=== PATIENT | male | born 1965 | race Caucasian/White ===

== ENCOUNTER 2020-10-20 20:13 | Inpatient (IN) | payer OTHER ==
[~2020-10-20] VITALS: Ht 182.9 cm; Wt 105.2 kg
[2020-10-20] MEDS ORDERED: LISINOPRIL20 MG PO (20:49)
[2020-10-20] MEDS ORDERED: NORVASC5 MG PO (20:50)
[2020-10-20] MEDS ORDERED: HYDROCHLOROTHIA25 MG PO (20:50)
--- OUTSIDE RECORDS SUMMARY | 2020-10-20 22:50 | XMS ---
PreManage Notification: DONNY HILLIARD Security Oncology Physician Assistant Events No recent Security Events currently on file CRITERIA MET - [facility] - 2 Visits in 30 Days CARE PROVIDERS There are no care providers on record at this time. Stephanie has no Care Guidelines for this patient. [place] VISIT COUNT (12 MO.) [address] TOTAL 3 NOTE: Visits indicate total known visits. ED/UCC VISIT TRACKING (12 MO.) [facility] COMPLAINT: - DIARRHEA, ABD PAIN 10/19/2020 15:32 [facility] OR TYPE: Emergency DIAGNOSES: - Unspecified intestinal obstruction, unspecified as to partial versus complete obstruction - BOWEL PROBLEM 10/14/2020 15:57 [facility] TYPE: Emergency COMPLAINT: - DIARRHEA VOMITING DIAGNOSES: - DIARRHEA VOMITING INPATIENT VISIT TRACKING (12 MO.) 10/19/2020 15:32 [facility] [place] TYPE: Medical Surgical DIAGNOSES: - Unspecified intestinal obstruction, unspecified as to partial versus complete obstruction 10/14/2020 15:57 [facility] OR TYPE: Medical Surgical DIAGNOSES: - Unspecified intestinal obstruction, unspecified as to partial versus complete obstruction [email or web address]
--- NOTE | 2020-10-21 01:06 | NUR ---
PT TO ROOM 124 FROM ED AT 2350 VIA STRETCHER. ALERT AND ORIENTED. ABLE TO TRANSFER SELF TO BED. ACCOMPANIED BY . ORDERS RECEIVED. VS AND WEIGHT OBTAINED. PT DENIES PAIN OR NAUSEA AT THIS TIME. IV BOLUS INFUSING ORDERED. 16F NGT PLACED IN RIGHT NARE WNL. PT NERI WELL. IMMEDIATE RETURN OF STOMACH CONTENTS NOTED. NGT TO LIWS. ABD FIRM AND DISTENDED. BOWEL TONES HYPOACTIVE. UMBILICAL HERNIA NOTED. PT DENIES QUESTIONS OR CONCERNS. LINENS PROVIDED FOR TO STAY IN ROOM. WARM BLANKET FOR PT. PT ORIENTED TO ROOM AND NURSE CALL LIGHT.
--- NOTE | 2020-10-21 02:01 | NUR ---
IV BOLUS COMPLETE. LR @ 125 ML/HR NOW INFUSING. PT RESTING IN BED WITH EYES CLOSED. SpO2 96% ON RA. HR 60'S. NGT TO LIWS WITH BROWN DRAINAGE.
--- NOTE | 2020-10-21 06:14 | NUR ---
CALL LIGHT ANSWERED. PT UP TO BR WITH MINIMAL SBA TO VOID AND HAVE LIQUID BM. GAIT STEADY. BACK TO BED, NERI WELL. UA SENT TO LAB. NGT WTIH 650 ML BROWN DRAINAGE. PT DENIES PAIN OR NAUSEA. ABD FIRM AND DISTENDED. BOWEL TONES HYPOACTIVE. IVF INFUSING ORDERED. IN ROOM. CALL LIGHT IN REACH.
--- NOTE | 2020-10-21 07:15 | NUR ---
Report received from Katlyn SORIANO. Pt sitting up in bed, NG to LIWS, states no needs at this time. Will continue plan of care.
--- NOTE | 2020-10-21 08:59 | NUR ---
PT CALL LIGHT ON. PT RETURNED FROM SCAN. PT REQUESTS NG TUBE AND IV FLUIDS BE RESTARTED. THIS RN TO ROOM. NG TUBE HOOKED UP TO LOW INTERMITTANT SUCTION. IV FLUIDS RESTARTED (SEE MAR). PTS RN UPDATED. NO ADDITIONAL REQUESTS OR COMPLAINTS. CALL LIGHT WITHIN REACH. PTS RN IN ROOM.
--- NOTE | 2020-10-21 09:18 | NUR ---
Pt requests lozenge for sore throat r/t NGT. Administered. Pt has no needs.
--- NOTE | 2020-10-21 09:34 | NUR ---
Scheduled medications administered and assessment complete. VS and I/O's complete. Pt has moderate distention in ABD, hyperactive bowel tones but denies pain, states only discomfort r/t NGT. NGT to TARYN, WNL. IVF infusing WNL. No requests at this time. Call light in reach
--- NOTE | 2020-10-21 10:22 | NUR ---
MED REC COMPLETE
--- NOTE | 2020-10-21 11:20 | NUR ---
IN TO PATIENT ROOM TO ATTEMPT CASE MANAGEMENT ASESSMENT. PATIENT SLEEPING, DOES NOT WAKE TO VOICE OR TOUCH. SHIV SORIANO NOTIFIED, SHE STATES PATIENT HAS BEEN SLEEPING MOST OF THE AM. WILL RETURN FOR ASSESSMENT WITH PATIENT IS AWAKE.
--- NOTE | 2020-10-21 12:41 | NUR ---
Scheduled ABX infusing. Pt resting in bed with eyes closed, even and unlabored respirations. Denies needs, call light in reach.
--- NOTE | 2020-10-21 13:36 | NUR ---
Pham espino complete, pt updated on POC and is agreeable, has no needs at this time.
--- NOTE | 2020-10-21 15:03 | NUR ---
CONNECTED WITH PT JUST BEFORE SURGERY. GAVE ENCOURAGEMENT, PT REQUESTED WE PRAY TOGETHER. PT THANKFUL FOR VISIT, WILL CONTINUE TO FOLLOW
--- NOTE | 2020-10-21 16:24 | NUR ---
Rounded on patient, juice provided per request. Pt updated on POC, cooperative. IVF infusing wnl. Clear tray ordered.
--- NOTE | 2020-10-21 17:40 | NUR ---
NGT cannister changed. Pt has clear liquid tray, tolerating well at this time with liquids for comfort. States no needs at this time. Call light in reach.
--- NOTE | 2020-10-21 17:46 | NUR ---
Scheduled surgery tomorrow. Pt has NGT to LIWS with good output. IVF and ABX infusing. Clear liquids for comfort until midnight. ABD distended, pt states no pain/nausea. Cepacol lozenges for throat irritation. No other PRN medications required this shift. A+O, VSS, VQS. Calls appropriately.
--- NOTE | 2020-10-21 19:46 | NUR ---
REPORT RECEIVED FROM DAY SHIFT RN. PT LYING IN BED ALERT AND ORIENTED. NGT CLAMPED FOR PRN MAALOX ADMINISTRATION FOR C/O HEARTBURN. PT DENIES PAIN OR NAUSEA. NEW BAG IVF INFUSING. DENIES FURTHER NEEDS. WHITE BOARD UPDATED. CALL LIGHT IN REACH.
--- NOTE | 2020-10-21 20:46 | NUR ---
EVENING ASSESSMENT COMPLETE. SCHEDULED MEDS ADMINISTERED PER EMAR. PT DENIES PAIN OR NAUSEA. DOES REPORT THROAT IRRITATION FROM NGT. PRN ADMINISTERED FOR C/O SORE THROAT. NGT BACK TO LIWS WITH CLEAR DRAINAGE. ABD FIRM AND DISTENDED. BOWEL TONES HYPOACTIVE. IVF INFUSING. PT WITH CLEAR LIQUIDS AT BEDSIDE. SCD'S IN PLACE. DENIES QUESTIONS OR CONCERNS. CALL LIGHT IN REACH.
--- NOTE | 2020-10-21 21:09 | HP ---
[facility] [address], [place] [address] Signed ADMISSION DATE: 10/20/2020 TIME: 10:45 p.m. PROBLEM: Small-bowel obstruction (persistent). HISTORY OF PRESENT ILLNESS: This 54-year-old white man was hospitalized in [place], [place] on October 14, having presented to the hospital at [facility] in [place] with abdominal distention, nausea, vomiting, and so forth. A CT scan showed findings consistent with bowel obstruction. Nasogastric tube was maintained for some amount of time. He was discharged on the 18 of October, but had prompt return of nausea and vomiting on the and re-presented to [facility] where CT scan was once again performed. The findings on the CT scan showed abdominal bowel loop distention as well as a nonobstructing incisional hernia at the umbilicus with herniated properitoneal fat. There appeared to be a left-sided segment of small bowel that had a relatively long stricture in appearance. There was no sign of ascites. The patient has had vomiting at least once. He presented to [facility] as he said "nothing was being done" while hospitalized in [place]. He has had some diarrhea. He has had no hematemesis or blood per rectum. PAST SURGICAL HISTORY: Does include laparoscopic cholecystectomy in the past as well as possible hernia repair. SOCIAL HISTORY: He is . He is accompanied by his . 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 REVIEW OF SYSTEMS: He denies any shortness of breath or chest pain. He has had no dysphagia or dysuria. He denies any hematemesis or blood per rectum. PHYSICAL EXAMINATION: GENERAL: Pleasant white man who does not look systemically toxic. His white count is elevated at 15.4, creatinine is 1.35, potassium of 3.2, blood sugar 136. HEENT: Trachea is midline. Mucous membranes are rather dry. CHEST: Shows normal respiratory excursion. He has no tachypnea. Electronically Signed By: JAKE PEREZ MD 10/21/20 2109 PATIENT NAME: DONNY HILLIARD HISTORY AND PHYSICAL DATE OF : 63 REPORT #: [id number] PHYSICIAN: JAKE PEREZ MD PCP: NO PRIMARY CARE PHYSICIAN REPORT IS CONFIDENTIAL AND NOT TO BE RELEASED WITHOUT AUTHORIZATION [facility] [address], [place] [address] Signed ABDOMEN: Markedly distended, highly consistent clinically with bowel obstruction. He has mild tenderness in the mid to lower abdomen on the right side. EXTREMITIES: Show no clubbing, cyanosis, or edema. CT scan from [place] was reviewed in detail and findings were noted as previously described. The official report described bibasilar atelectasis. Radiographic findings of prior cholecystectomy. No evidence of lymphadenopathy of the abdomen and persistent demonstration of mid to distal small bowel distention greater than 4 cm related to regions of nondistention and mild mural thickening of the small bowel with multiple segments of dilated small bowel distal to the dominant region, possible inflammatory change. ASSESSMENT: He has a small-bowel obstruction which is of uncertain etiology, but not related to the hernia that is noted. This may be related to an inflammatory stricture or less likely an intussusception type abnormality or neoplasm of the small bowel. The possibility of inflammatory stricture related to Crohn disease is also considered of course. He has had a fair amount of time since the onset of his obstructive symptoms on October 14 and at this point, would recommend fluid resuscitation, nasogastric tube placement and likely operative intervention tomorrow. This might include a laparoscopic approach to identify the offending inflammatory or neoplastic stricture and extra-abdominal resection. More likely, however, he will require a laparotomy hopefully with limited abdominal incision. Discussed all this with the patient and his , they understand and agree. MD JENNIFER White/MODL /[id number] cc: MD Dr. Adrian Varghese Copies: LAURA BLANCO MD Electronically Signed By: JAKE PEREZ MD 10/21/202108 PATIENT NAME: DONNY HILLIARD HISTORY AND PHYSICAL DATE OF : 63 REPORT #: [id number] PHYSICIAN: JAKE PEREZ MD PCP: NO PRIMARY CARE PHYSICIAN REPORT IS CONFIDENTIAL AND NOT TO BE RELEASED WITHOUT AUTHORIZATION [facility] [address] [facility] [place] [address] Signed ~ Electronically Signed By: JAKE PEREZ MD 10/21/20 2109 PATIENT NAME: DONNY HILLIARD HISTORY AND PHYSICAL DATE OF : 63 REPORT #: [id number] PHYSICIAN: JAKE PEREZ MD PCP: NO PRIMARY CARE PHYSICIAN REPORT IS CONFIDENTIAL AND NOT TO BE RELEASED WITHOUT AUTHORIZATION
--- NOTE | 2020-10-22 00:01 | NUR ---
IV ABX INFUSING PER ORDER. NGT CANNISTER REPLACED. PT AWARE OF NPO STATUS. DENIES PAIN OR NAUSEA. NO FURTHER NEEDS.
--- NOTE | 2020-10-22 04:03 | NUR ---
NEW BAG IVF INFUSING. NGT TO LIWS WITH DARK BROWN DRAINAGE. PT DENIES PAIN OR NAUSEA. ASSESSMENT COMPLETE. ABD FIRM AND DISTENDED. BOWEL TONES ACTIVE. PT DENIES NEEDS. IN ROOM. CALL LIGHT IN REACH.
--- NOTE | 2020-10-22 06:33 | NUR ---
IV ABX INFUSING PER ORDER. NGT TO LIWS WITH DARK BROWN DRAINAGE. PRN LOZENGE ADMINISTERED FOR THROAT DISCOMFORT. PT DENIES ABD PAIN OR NAUSEA. SCD'S IN PLACE. IN ROOM. CALL LIGHT IN REACH.
--- NOTE | 2020-10-22 07:15 | NUR ---
Report received from Katlyn SORIANO. Pt alert and oriented, resting in bed and states no needs. NGT to LIWS. NPO.
--- NOTE | 2020-10-22 07:55 | NUR ---
Scheduled medications administered, NGT clamped at this time for med pass. Assessment complete. Pt denies pain, c/o indigestion and throat irritation, PRN maalox and cepacol provided. ABD distended, bowel tones active. IVF infusing WNL. VSS, I/O's complete. Preop wipedown complete. Call light in reach.
--- NOTE | 2020-10-22 08:45 | NUR ---
TO PATIENT ROOM TO COMPLETE ASSESSMENT. PATIENT IN OR. WILL FOLLOW UP WITH PATIENT WHEN HE RETURNS TO THE FLOOR.
--- NOTE | 2020-10-22 09:21 | NUR ---
Pt ready for procedure. Updated on plan of care, agreeable. at bedside, attentive to pt. States no needs at this time, DRAFTER CONSTRUCTION in room.
--- NOTE | 2020-10-22 10:30 | NUR ---
I was unable to meet with Manuel this a.m. as he was in surgery during my patient rounding. However, there was an adult female in the room waiting for him to return from surgery. I introduced myself, and left a business card. I also asked if there were questions or concerns regarding Siri care. The response was "We are very happy wit the care he has received." No questions or concerns were expressed at this time.
--- NOTE | 2020-10-22 12:55 | NUR ---
10/22/20 1255 Noa Rodriguez 1236-PATIENT ARRIVED TO PACU ON 6L MASK RR EVEN. PATIENT MOVING ALL EXTREMITIES, KNEES BENT IN BED. PATIENT AWAKE REPORTING PAIN 10/10 WILL MEDICATE PER EMAR. SR. IVF INFUSING. MORENO CATHETER DRAINING. PATIENT REPORTS "NEEDS TO PEE" EDUCATED ABOUT MORENO DRAINING. 1245-NEW ORDER RECEIVED FROM JAKE DE LEON FOR 1 GRAM IV TYLENOL. PATIENT REPORTING PAIN 8/10 AND MOVING LEGS IN BED. ENCOURAGED TO REST. 1254-PATIENT SLEEPING 6L MASK RR EVEN.
--- NOTE | 2020-10-22 13:15 | NUR ---
Pt returns from procedure, drowsy but responds to questioning. VSS. On 2L O2 NC, cpox in place, SPO2 99%. Pt reports pain 5/10 in abdomen. Dressing to midline incision with laurent, covered with surgical dressing, light shadowing noted. G tube draining to bag. Narvaez in place, draining WNL. in room, attentive to patient.
--- NOTE | 2020-10-22 14:30 | NUR ---
Post op hourly vitals completed
--- NOTE | 2020-10-22 14:37 | NUR ---
BO CHANEY INFORMED ME THAT PT HAD JUST RETURNED FORM PACU AND REQUESTED I LET PT REST MORE. WILL FOLLOW NEEDED
--- NOTE | 2020-10-22 14:41 | NUR ---
PT ASKED IF MCBUTTERFLY WAS IN THE ROOM. STATED NO HIS NURSE WAS SHIV. HE SAID "NO MCBUTTERFLY". OH, CHRIS? PT STATED YES. SAID NO, HE WILL BE BACK TO CHECK ON HIM TONIGHT OR TOMORROW MORNING.
--- NOTE | 2020-10-22 15:08 | NUR ---
COCOA BEAN ROASTER pump initiated, verified by second RN. Pt educated regarding COCOA BEAN ROASTER use, drowsy, continue to reinforce this. Pt's educated that only patient can use COCOA BEAN ROASTER button, she verbalizes understanding and agreement. Pt stating 5/10 pain at this time. Will continue to monitor.
--- NOTE | 2020-10-22 15:30 | NUR ---
Post op hourly vitals complete
--- NOTE | 2020-10-22 16:30 | NUR ---
post op hourly vitals complete, pt resting in bed with eyes closed, respirations even and unlabored, pt has not utilized TALENT DEVELOPMENT ANALYST pump at this time. 2L O2 NC in place, CPOX in place. IVF infusing WNL.
--- NOTE | 2020-10-22 17:45 | NUR ---
ABX and IVF infusing. Pt resting in bed with eyes closed, awakens to voice, re-educated regarding PROGRAM ENGAGEMENT DIRECTOR pump. No needs at this time, call light in reach.
--- NOTE | 2020-10-22 19:30 | NUR ---
REPORT RECEIVED FROM DAY SHIFT RN. PATIENT RESTING QUIETLY WITH NO CARE NEEDS AT THIS TIME. CALL LIGHT IN REACH.
--- NOTE | 2020-10-22 22:01 | NUR ---
TALKED WITH AND PATIENT ADVANCED TO CLEAR LIQUID DIET. NO OTHER ORDERS TAKEN AT THIS TIME.
--- NOTE | 2020-10-22 22:37 | NUR ---
PATIENT PAIN WELL CONTROLLED WITH CARDIOPULMONARY TECHNOLOGIST CHIEF, NO NAUSEA, VS STABLE, ABD A LITTLE DISTENDED AND BOWEL TONES HYPOACTIVE. CALL LIGHT IN REACH AND PATIENT TAKING IN GOOD PO FLUIDS SINCE PLACED ON CLEAR LIQUIDS.
--- NOTE | 2020-10-23 | NUR ---
PATIENT RESTING QUIETLY STILL ON 2L/NC, EYES CLOSED, RESPIRATIONS REGULAR AND EVEN, CALL LIGHT IN REACH.
--- NOTE | 2020-10-23 02:15 | NUR ---
PATIENT CONTINUES TO REST QUIETLY, RESPIRATIONS HAVE BEEN REGULAR AND EVEN, PATIENT PAIN WELL CONTROLLED WITH INVESTOR RELATIONS MANAGER. PATIENT'S ASSESSMENT REMAINS UNCHANGED. CALL LIGHT IN REACH.
--- NOTE | 2020-10-23 03:00 | NUR ---
PATIENT RESTING QUIETLY, RESPIRATIONS REGULAR AND EVEN, EYES CLOSED, CALL LIGHT IN REACH.
--- NOTE | 2020-10-23 05:35 | NUR ---
PATIENT HAS SLEPT WELL THROUGH THE SHIFT PER PATIENT'S REPORT AND PAIN HAS BEEN WELL CONTROLLED WITH CORPORATE TAX MANAGER. PATIENT HAS ONLY USED 6MG THROUGH THE NIGHT. BOWEL TONES ARE HYPOACTIVE AND THERE HAS BEEN GOOD BILE DRAINAGE FROM THE G-TUBE SITE. MIDLINE DRESSING REMAINS INTACT WITH DRIED SEROSANGUINOUS DRAINAGE. PATIENT TAKING IN PO FLUIDS WELL. CALL LIGHT IS IN REACH.
--- NOTE | 2020-10-23 08:52 | NUR ---
patient resting in the bed. PT stood up for linen change. breakfast set up for him. warm washcloth offered and given. call light within reach. no further needs at this time.
--- NOTE | 2020-10-23 09:30 | NUR ---
IN TO GIVE PT MORNING MEDICATIONS. G-TUBE EMPTIED OF 210 MLS GREENISH/BILE-LIKE FLUID. BOWEL TONES HYPOACTIVE, PT DENIES NAUSEA OR BEING ABLE TO YET PASS GAS. PT HAS BEEN UP OUT OF BED THIS AM. MORENO REMAINS IN PLACE, EMPTIED OF 150 MLS CONCENTRATED URINE. PT HAS BEEN TOLERATING CLEAR LIQUID DIET MODERATELY WELL. IVF REMAIN @ 125 MLS/HR. PT HAS BEEN CALLING APPROPRIATELY. NO LONGER REQUIRING O2, SATING 95% ON ROOM AIR. GIVEN IV TORADOL FOR BREAKTHROUGH PAIN, PT IS ALSO ON CARDIAC CATH RN PUMP.
--- NOTE | 2020-10-23 10:16 | NUR ---
Patient is in bed watching TV, vitals charted, franco bag emptied and Is and Os charted. No other immediate needs or concerns. Call light within reach.
--- NOTE | 2020-10-23 11:35 | NUR ---
PT UP TO AMBULATE 2 LAPS AROUND NURSES STATION WITH DAMIEN FRANZ. TOLERATED WELL AND REPORTS PAIN IS WELL MANAGED AT THIS TIME. BACK TO BED. REFUSING TO SIT UP IN CHAIR THIS AM, BUT IS WALKING FREQUENTLY.
--- NOTE | 2020-10-23 13:46 | NUR ---
Patient is lying down resting. Room is organized, franco bag has been emptied and cleaned accordingly. Patient's call light is in reach along with personal belongings. Is and Os are charted.
--- NOTE | 2020-10-23 14:00 | NUR ---
MORENO URINE OUTPUT 100 MLS FOR THE LAST [address] TO REACH [address] PEREZ TO NOTIFY. MESSAGE LEFT TO RETURN CALL.
--- NOTE | 2020-10-23 14:26 | NUR ---
PT RESTING IN BED-ALERT AND ORIENTED. NG TUBE GONE, PT IS VERY PLEASED. HAS QUESTIONS REGARDING DRAIN AND MORENO. REFERREED TO BO RODRIGUEZ, SHE WAS ABLE TO ANSWER PTS' QUESTIONS. GAVE ENCOURAGEMENT, WILL FOLLOW
--- NOTE | 2020-10-23 14:30 | NUR ---
OIL WELL CABLE TOOL DRILLER PUMP ALARMING EMPTY. REPLACED CARTRIDGE W/ NICHOLAS SORIANO PRESENT FOR VERIFICATION AND COSIGNER. PUMP CLEARED OF 25.8 MG UPON REPLACEMENT. PT STATES PAIN IS WELL MANAGED AT THIS TIME. DENIES FURTHER NEEDS.
--- NOTE | 2020-10-23 14:52 | NUR ---
PT AMBULATED 4 LARGE LAPS AROUND NURSES STATIONS WITH OSEI QUEZADA.
--- NOTE | 2020-10-23 15:23 | NUR ---
IN ROOM TO VISIT. ASSESSMENT COMPLETED. BOWEL TONES HYPOACTIVE/RARE THROUGHOUT. PT CONTINUES TO APPEARS MODERATELY DISTENDED AND DENIES PASSING GAS. OLD DRAINAGE TO MIDLINE INCISION, INTACT. PT HAS BEEN VERY COMPLIANT WITH AMBULATING FREQUENTLY. DENIES ANY NAUSEA W/ CLEAR LIQUID DIET. PAIN CONTINUES TO BE WELL MANAGED W/ HOME CARE ASSOCIATE PUMP. G-TUBE DRAINAGE ORANGE/RED PT JUST ATE RED & ORANGE JELLO FOR LUNCH. DENIES FURTHER NEEDS.
--- NOTE | 2020-10-23 15:27 | PATH ---
[facility] [address] [place], [place] [address] Signed SPECIMEN(S): A HERNIA SAC SPECIMEN SOURCE: A. HERNIA SAC CLINICAL HISTORY: Umbilical hernia; small bowel obstruction. FINAL PATHOLOGIC DIAGNOSIS: Hernia sac, excision: - Mesothelial-lined fibromembranous tissue with chronic inflammation and fibrosis, consistent with hernia sac. - Fibroadipose tissue with no histopathologic abnormality. NAL:cml:C2NR MICROSCOPIC EXAMINATION: Histologic sections of all submitted blocks are examined by light microscopy. These findings, together with the gross examination, support the pathologic diagnosis. GROSS DESCRIPTION: The specimen, labeled "DC, hernia sac," is received in formalin and consists of one piece of irregular shaped fibromembranous tissue that measures 4.5 x 3.2 x 1.1 cm. Specimen is pink-beatty, focally congested. Sectioning through the specimen is grossly unremarkable. Helper Marble Finisher sections are submitted in cassette (A1). JS (under the direct supervision of a pathologist) The Gross Description was prepared using a voice recognition system. The report was reviewed for accuracy; however, sound-alike word errors, addition and/or deletions may occur. If there is any question about this report, please contact Client Services. PERFORMING LABORATORY: The technical component was performed by [employer], [address] [place] [id number] (Emergency Vehicle Driver: Parris Manrique MD; CLIA# [id number]). [facility], [address] [address] (CLIA# [id number]). Diagnostician: Shana Lewis MD Pathologist PATIENT NAME: DONNY HILLIARD PATHOLOGY DATE OF : 63 REPORT #: [id number] PHYSICIAN: [facility] PCP: NO PRIMARY CARE PHYSICIAN REPORT IS CONFIDENTIAL AND NOT TO BE RELEASED WITHOUT AUTHORIZATION [address] [place] [address] Signed Electronically Signed 10/23/2020 Copies: ~ PATIENT NAME: DONNY HILLIARD PATHOLOGY DATE OF : 63 REPORT #: [id number] PHYSICIAN: [facility] PCP: NO PRIMARY CARE PHYSICIAN REPORT IS CONFIDENTIAL AND NOT TO BE RELEASED WITHOUT AUTHORIZATION
--- NOTE | 2020-10-23 15:42 | NUR ---
LEFT MESSAGE REGARDING LOW UO.
--- NOTE | 2020-10-23 15:51 | NUR ---
Patient on clear liquid diet. Liquid intake measured at 0930 and 1320.
--- NOTE | 2020-10-23 18:30 | EKG ---
[facility] [address] [facility] [place] [address] Signed Sinus rhythm with occasional premature ventricular complexes Otherwise normal ECG No previous ECGs available Confirmed by ASIM ALCANTARA MD ([id number]) on 10/23/2020 6:30:07 PM Electronically Signed By: ASIM ALCANTARA MD 10/23/201829 PATIENT NAME: DONNY HILLIARD Electrocardiogram DATE OF : 63 PHYSICIAN: ASIM ALCANTARA MD REPORT #: [id number] REPORT IS CONFIDENTIAL AND NOT TO BE RELEASED WITHOUT AUTHORIZATION
--- NOTE | 2020-10-23 19:10 | NUR ---
SHIFT REPORT RECEIVED FROM DAYSMAFT BO RODRIGUEZ AT BEDSIDE, pt AWAKE AND RESTING IN BED. CPOX IN PLACE, 95% ON RA, HR 60'S. ALSO IN ROOM. MIDLINE DRESSING INTACT, MODERATE SEROSANGUINEOUS SHADOWING NOTED, PER REPORT MAJORITY OF SHADOWING IS OLD IN NATURE. G-TUBE PATENT AND DRAINING TO GRAVITY. BUSINESS UNIT CONTROLLER BUTTON IN REACH AND IV FLUIDS INFUSING PER MD ORDERS. NO NEEDS AT THIS TIME, CALL LIGHT IN REACH.
--- NOTE | 2020-10-23 19:30 | NUR ---
IN ROOM TO GET PT READY TO WALK, HE WALKED IN HALLS WITH HIS . HE WILL CALL WHEN HE IS DONE IF HE NEEDS HELP GETTING BACK IN BED. PT STATES HE IS STEADY ON HIS FEET AND DENIES DIZZINESS.
--- NOTE | 2020-10-23 19:45 | NUR ---
pt AMBULATING IN HALLWAY WITH , DENIES NEEDS OR CONCERNS AT THIS TIME. STEADY ON FEET.
--- NOTE | 2020-10-23 20:55 | NUR ---
ASSESSMENT COMPLETE, SCHEDULED MEDS GIVEN (SEE EMAR). VSS, CPOX IN PLACE. pt REPORTS TOLERABLE 5/10 PAIN, BIG DATA HADOOP DEVELOPER BUTTON IN REACH AND BIG DATA HADOOP DEVELOPER SETTINGS VERIFIED WITH SECOND RN JAMES. IV SITE WNL, BRISK BLOOD RETURN NOTED. IV FLUIDS INFUSING PER MD ORDERS. NO NEW SHADOWING TO MIDLINE DRESSING, G-TUBE CONTENTS EMPTIED. DENIES NAUSEA, BOWEL TONES HYPOACTIVE. MUSIC MANAGER INTACT, pt DENIES NUMBNESS AND TINGLING. FRESH WATER AND JUICE PROVIDED, BOARD UPDATED. CALL LIGHT IN REACH.
--- NOTE | 2020-10-23 22:32 | NUR ---
PT IS RESTING WITH EYES CLOSED, RR IS EVEN AND NONLABORED. SPD ALERT ON CPOX, PT IS AT 90% ON RA. CALL LIGHT IS CLOSE.
--- NOTE | 2020-10-23 23:06 | NUR ---
SPD ALERTED ON CPOX. PT RESTING WITH EYES CLOSED, AND CPOX WAS IN UPPER 70'S. UPON WAKING PT O2 QUICKLY RETURNED TO UPPER 80'S THEN 90%. PLACED PT ON 2LNC WHILE SLEEPING AND HE IS AT 92%. PT DENIES FURTHER NEEDS, CALL LIGHT IS CLOSE.
--- NOTE | 2020-10-24 00:10 | NUR ---
SCHEDULED IV ABX GIVEN, SEE EMAR. IV SITE WNL. 2LNC REMAINS IN PLACE, CPOX ON, O2 SAT MID TO UPPER 90'S. HR 60'S, pt AWOKE TO VOICE. THIS RN NOTICED SOME BLOOD ON pt'S GOWN. GOWN LIFTED UP TO FURTHER ASSESS. SMALL CLOT ALONG WITH SMALL AMOUNT OF BLOOD NOTED ON ABD/G-TUBE BAG. SITE CLEANED, BLOOD WIPED OFF OF pt. NO BLEEDING FROM G-TUBE INSERTION SITE, ABD DRESSING, OR MORENO. VERY SCANT BLEEDING/OOZING NOTED FROM X2 PINPRICK SPOTS ON LEFT ABD, GAUZE IN PLACE. SITE ALSO ASSESSED BY FLOAT BO RAMIREZ. WILL CONTINUE TO MONITOR. EARTH SCIENCE TEACHERBO SIMON ALSO AWARE. NO FURTHER NEEDS, CALL LIGHT IN REACH.
--- NOTE | 2020-10-24 04:22 | NUR ---
IN ROOM TO ROUND ON pt, ASSESSMENT COMPLETE. NO NEW BLEEDING NOTED FROM PREVIOUS PLACED GAUZE, WILL CONTINUE TO MONITOR. NO NEW SHADOWING TO ABD MIDLINE DRESSING. IV SITE WNL, IV FLUIDS CONTINUE TO INFUSE PER MD ORDERS. CPOX IN PLACE, 2LNC ON, O2 SAT MID TO UPPER 90'S, HR 60'S. pt AWOKE BRIEFLY TO VOICE, DENIES NEEDS OR CONCERNS AT THIS TIME. TIE WORKER BUTTON WITHIN REACH. CALL LIGHT IN REACH.
--- NOTE | 2020-10-24 06:38 | NUR ---
IN ROOM TO ADMINISTER IV ABX AND SCAN NEW IV BAG. ASSISTED LESLEE SORIANO WITH ENTERING VS AND I&O'S. PT IS NOW RESTING WITH EYES CLOSED, RR IS EVEN AND NONLABORED. CALL LIGHT IS CLOSE.
--- NOTE | 2020-10-24 08:15 | NUR ---
BP SLIGHTLY HIGH THIS AM 162/95, SCHEDULED BP MEDICATIONS GIVEN. PT STATES ABD "FEELS TIGHT" THIS MORNING, BUT NOT MUCH DIFFERENT THAN YESTERDAY. ABD APPEARS MODERATELY DISTENDED. BOWEL TONES CONTINUE TO BE RARE/HYPOACTIVE. PT DENIES NAUSEA. REMAINS ON CLEAR LIQUID DIET AND IS TOLERATING MODERATELY WELL. G-TUBE REMAINS PATENT. MUSTANGER PUMP CONTINUES, BUTTON IN REACH. ENCOURAGING PT TO GET OUT OF BED FOR WALK THIS AM. PT COMPLIANT. WALKING WITH CERTIFIED PROFESSIONAL MIDWIFE NOW.
--- NOTE | 2020-10-24 08:50 | NUR ---
patient states he was in a lot of pain after walk and near the end of the walk it got worse. BO Coyle notified. PT is back in bed resting. REGULATOR TESTER pump button was pushed at the beginning of the walk. PT says it didnt help. call light in reach. no further needs at this time.
--- NOTE | 2020-10-24 08:56 | NUR ---
Patient refused warm wash cloth, wanted to rest more, board was updated, ice pack provided for pain. Call light in reach.
--- NOTE | 2020-10-24 09:00 | NUR ---
PT C/O 8/10 ABD AFTER WALK. STATES "IT FEELS LIKE MY MUSCLES ARE TIGHT/CRAMPING/SORE." PT CONTINUES TO UTILIZE NETWORK INFRASTRUCTURE ARCHITECT PUMP. GIVEN IV ORFIMEV, PAIN REDUCED TO 3/10. PT BACK TO BED. HAS BEEN COMPLIANT W/ AMBULATING , HOWEVER DOES NOT WANT TO SIT IN CHAIR. MIDLINE DRESSING REMAINS INTACT, NO NEW DRAINAGE. G-TUBE PATENT AND DRAINING PURPLE/RED DRAINAGE (MATCHING WHAT PT HAD FOR BREAKFAST, GRAPE JUICE & JELLO). URINE OUTPUT QS, CATH CARE COMPLETED. PT DENIES FURTHER NEEDS.
--- NOTE | 2020-10-24 10:08 | NUR ---
Patient is in bed resting. Patient is on a clear liquid diet, requested more jello which was provided. Call light is in reach.
--- NOTE | 2020-10-24 13:06 | NUR ---
INTO ROOM TO COMPLETE CASE MANAGEMENT ASSESSMENT. PATIENT SLEEPING, DOES NOT AWAKEN TO VOICE. WILL RETURN TO ASSES PATIENT AT ANOTHER TIME.
--- NOTE | 2020-10-24 15:00 | NUR ---
SPOKE WITH DR. PEREZ ABOUT PT BOWEL TONES BEING RARE AND NEARLY ABSENT, PT QUITE DISTENDED. HAS BEEN AMBULATING FREQUENTLY TO STIMULATE BOWELS. MD STATES POSSIBLE ILEUS EXPECTED FOR FEW DAYS AFTER SURGERY. CONTINUING TO MONITOR G-TUBE OUTPUT AND CONTINUE CLEAR LIQUID DIET TOLERATED. ASSESSMENT COMPLETED, NO ACUTE CHANGES.
--- NOTE | 2020-10-24 15:20 | NUR ---
MORENO EMPTIED OF 150 MLS CLEAR YELLOW URINE. MORENO DC'D WNL PER MD ORDER. VSS. PT REPORTS PAIN IS WELL MANAGED AT REST, 4/10. DENIES FURTHER NEEDS.
--- NOTE | 2020-10-24 16:40 | NUR ---
Patient called medical front desk specialist and requested transfer assistance to . Patient successfully transferred to with minimal assistance. Patient was provided with a urinal for future use.
--- NOTE | 2020-10-24 18:00 | NUR ---
PT PULLED LAC IV OUT. ATTEMPTED TO RESTART IV X2, BOTH ATTEMPTS UNSUCCESSFUL. ONEIDA ALANIZ RN ALSO ATTEMPTED. PETROLEUM REFINING FIRER CALLED TO REQUEST ATTEMPT. CEFOXITIN DELAYED D/T NO IV.
--- NOTE | 2020-10-24 19:25 | NUR ---
SHIFT REPORT RECEIVED FROM DAYSHIFT BO RODRIGUEZ AT BEDSIDE, pt RESTING IN BED. IV PULLED BY pt, MULTIPLE ATTEMPTS UNSUCCESSFUL BY VARIOUS DAYSHIFT STAFF MEMBERS. ED BO CAMPBELL ON HER WAY TO ATTEMPT NEW IV. NO NEEDS BY pt AT THIS TIME, REPORTS PAIN TOLERABLE 2-3/10. CALL LIGHT IN REACH.
--- NOTE | 2020-10-24 19:32 | NUR ---
BLOOD PRESSURE WAS HIGH DO TO THE STRESS OF THE NURSE TRYING TO GET AN IV STARTED. BOTH DAY SHIFT AND PROGRAMMING INTERNSHIP WERE NOTIFIED.
--- NOTE | 2020-10-24 20:10 | NUR ---
ATTEMPTED IV START WITH 2 POKES, PT TOLERATED WELL. UNSUCESSFUL AT IV START, EQUAL OPPORTUNITY REPRESENTATIVE NOTIFIED. SHE WILL TRY IV START. PT DENIES NEEDS, CALL LIGHT IS CLOSE.
--- NOTE | 2020-10-24 23:00 | NUR ---
PUMP HOUSE ENGINEER ANDRINA UNABLE TO START NEW IV, CCU BO OWEN IN ROOM WITH FRANCHISE BUSINESS CONSULTANT MARYANN TO ATTEMPT NEW IV. NEW IV STARTED, CANE FLUME WATCHER MORPHINE AND IV FLUIDS INFUSING PER MD ORDERS, CANE FLUME WATCHER BUTTON IN REACH OF pt. ADULT SECONDARY EDUCATION INSTRUCTORBO SIMON GIVING EVENING MEDICATIONS, ASSESSMENT COMPLETE. NO NEW SHADOWING TO MIDLINE INCISION, G-TUBE TO GRAVITY DRAIN. BOWEL TONES HYPOACTIVE, pt DENIES NAUSEA. IN ROOM, CALL LIGHT IN REACH. SCD'S IN PLACE.
--- NOTE | 2020-10-24 23:19 | NUR ---
PT'S IV WAS RESTARTED. IN ROOM TO ADMINISTER EVENING MEDICATIONS. PT DENIES FURTHER NEEDS AT THIS TIME. CALL LIGHT IS CLOSE.
--- NOTE | 2020-10-25 00:19 | NUR ---
PT CALLED TO SAY AN ALARM WAS RINGING, IDENTIFIED THE CPOX WAS ALARMING, EXPLAINED TO PT AND , THEY UNDERSTAND, NO FURTHER NEEDS
--- NOTE | 2020-10-25 00:30 | NUR ---
VERIFIED BUSINESS DEVELOPMENT RECRUITER MORPHINE SETTINGS WITH EMAR ORDERS, VERIFIED WITH SECOND RN AURORA AT BEDSIDE. O2 SATS IN MID TO UPPER 80'S, pt PLACED ON 1.5LNC, NOW SUSTAINING ABOVE 90%. REMAINS IN ROOM, CALL LIGHT IN REACH.
--- NOTE | 2020-10-25 02:54 | NUR ---
SKIING TEACHER PUMP ALARMING, NEW MORPHINE SKIING TEACHER CARTRIDGE IN PLACE, SETTINGS VERIFIED WITH MYSELF AND SECOND RN ANDSHEYLA WITH EMAR ORDERS, PUMP CLEARED. NEW BAG IV FLUIDS HUNG AND INFUSING PER MD ORDERS. ASSESSMENT COMPLETE, NO NEW CHANGES OR CONCERNS. CALL LIGHT IN REACH AND IN ROOM.
--- NOTE | 2020-10-25 04:19 | NUR ---
CPOX ALARMING, O2 SAT 81% ON RA, 1.5LNC PLACED BACK ON pt, O2 SAT QUICKLY RETURNED TO LOW 90'S. NO ADDITIONAL NEEDS, CALL LIGHT IN REACH ALONG WITH FABRIC WORKER LEADER BUTTON. ALSO IN ROOM.
--- NOTE | 2020-10-25 05:26 | NUR ---
SCHEDULED IV ABX INFUSING PER MD ORDERS, IV SITE WNL. pt RESTING IN BED, 1.5LNC IN PLACE. RR EVEN AND UNLABORED. CALL LIGHT AND EVP OPERATIONS BUTTON IN REACH.
--- NOTE | 2020-10-25 06:30 | NUR ---
pt LOST IV SITE AT END OF DAYSHIFT, DIFFICULT IV START, MULTIPLE ATTEMPTS BEFORE PLACING NEW IV SITE. IV FLUIDS AND ABX PER MD ORDERS. MOTOR RACER PUMP ALSO IN PLACE, CONTROLING PAIN WELL. RARE TO HYPOACTIVE BOWEL TONES, G-TUBE TO GRAVITY DRAIN. CLEAR LIQUID DIET, NO NAUSEA REPORTED. VOIDING QS, NO BM THIS SHIFT.
--- NOTE | 2020-10-25 08:30 | NUR ---
PT GIVEN HEPARIN INJECTION AND IV PEPCID. BP ELEVATED YET STILL W/IN PARAMETERS GIVEN SCHEDULE BP MEDS. PT STATES MINIMAL PAIN AT REST THIS MORNING 4/10 IN THE ABD. BOWEL TONES HYPOACTIVE AND ABD TIGHT AND MODERATELY DISTENDED. G-TUBE TO BAG, GAUZE OVER INSERTION SITE INTACT. MIDLINE INCISION INTACT, NO NEW DRAINAGE. PT DENIES NAUSEA. TOLERATING CLEAR LIQUID DIET WELL. SITTING UP IN BED EATING BREAKFAST.
--- NOTE | 2020-10-25 09:11 | NUR ---
PT RESTING IN BED WITH EYES CLOSED. PT JSUT FINISHED BREAKFAST. WARM CLOTH GIVEN FOR FACE. PT HAS BP OF 173/96 WILL NOTIFY BO RODRIGUEZ. CALL LIGHT WITHIN REACH. WHITE BOARD UPDATED. NO FURTHER NEEDS AT THIS TIME.
--- NOTE | 2020-10-25 11:00 | NUR ---
PT MEDICATED W/ IV TYLENOL PRIOR TO WALKING. COMPLETED 3 LAPS WITH MISHA QUEZADA, TOLERATED WELL. BACK TO BED. LUNCH ORDERED. PAIN WELL CONTROLLED AT THIS TIME AFTER TYLENOL, NOW 07/09. CALL LIGHT IN REACH. WATCHING TV.
--- NOTE | 2020-10-25 11:49 | NUR ---
THIS STRATEGIC PLANNING MANAGER AMBULATED WITH PATIENT AROUND BOTH NURSE STATIONS FOR THREE LAPS. PT THEN GOT INDEPENDENT BED BATH AND IS NOW BACK IN BED. CALL LIGHT WITHIN REACH. NO FURTHER NEEDS AT THIS TIME.
--- NOTE | 2020-10-25 13:33 | NUR ---
BLOOD DRAWN FOR CMP AND MAGNESIUM AND SENT TO LAB. G-TUBE EMPTIED OF 650 MLS. PT DENIES NAUSEA. TOLERATED LUNCH WELL. REPORTS 4/10 PAIN, STATES IT HAS BEEN WELL MANAGED W/ COMMERCIAL PRODUCTION EDITOR. VSS. NO FURTHER NEEDS AT THIS TIME. CALL LIGHT IN REACH.
--- NOTE | 2020-10-25 14:57 | NUR ---
CORE CUTTER PUMP ALARMING. CARTRIDGE REPLACED AND DOUBLE CHECKED W/ NICHOLAS SORIANO. G-TUBE BAG EMPTIED OF 325 MLS FLUID MATCHING THE COLOR OF CLEAR LIQUIDS HE HAS BEEN DRINKING (PINK/RED). CMP CAME BACK, LABS WNL.
--- NOTE | 2020-10-25 17:00 | NUR ---
PT HAS CLEAR LIQUID TRAY. SITTING UP IN BED EATING. G-TUBE BAG EMPTIED OF 450 MLS.
--- NOTE | 2020-10-25 17:45 | NUR ---
PT AMBULATED HALLWAY WITH MISHA QUEZADA AFTER DINNER. CONTINUES TO TOLERATE CLEAR LIQUIDS WELL.
--- NOTE | 2020-10-25 18:25 | NUR ---
PT CONTINUES ON THE MORPHINE WEB CONTENT PRODUCER PUMP FOR PAIN MANAGEMENT. PT HAS BEEN PUSHING BUTTON MORE FREQUENTLY AND HAS BEEN RE-EDUCATED TO ONLY USE WEB CONTENT PRODUCER PUMP FOR MODERATE TO SEVERE GRADE PAIN. WHEN SLEEPING IN BED PT IS REQUIRING 2 L NC AND RR SLOWED TO 12, THOUGH EASILY AWAKENS TO VOICE. PUPILS ARE SMALLER IN APPEARANCE. PT IS ALERT AND ORIENTED WHEN AWAKE. DR PEREZ NOTIFIED OF CURRENT STATUS W/ WEB CONTENT PRODUCER AND NEW ORDERS FOR 1 MG WITH A 6 MINUTE LOCKOUT. CHICKEN PICKER BO CAMILO NOTIFIED.
--- NOTE | 2020-10-25 19:30 | NUR ---
SHIFT REPORT RECEIVED FROM DAYSMTFT BO RODRIGUEZ AT BEDSIDE. pt RESTING QUIETLY IN BED, AWOKE TO VOICE. QA MANAGER BUTTON AND CALL LIGHT IN REACH. IV FLUIDS INFUSING AT 75MLS/HR, SITE WNL. pt DENIES NEEDS, CPOX ALSO IN PLACE. 2LNC ON, O2 SATS AND HR WNL.
--- NOTE | 2020-10-25 20:20 | NUR ---
IN TO GET VITALS, PT DID NOT NEED TO VOID AT THS TIME, G TUBE DRAINAGE IS NOT ENOUGH TO EMPTY AT THIS TIME, PT WILL BE DUE TO VOID
--- NOTE | 2020-10-25 20:53 | NUR ---
ASSESSMENT COMPLETE, SCHEDULED MEDS GIVEN (SEE EMAR). pt REPORTS TOLERABLE 3-4/10 PAIN AT REST, EDUCATION PROVIDED ON USE OF CRM ANALYST PUMP, pt VERBALIZED UNDERSTANDING. AWOKE EASILY TO VOICE, VSS. 2LNC IN PLACE. CRM ANALYST DOSE RECENTLY UPDATED FROM 2MG TO 1MG, SETTINGS UPDATED AND VERIFIED WITH SECOND RN AURORA. SCANT NEW SHADOWING TO MIDLINE, REMAINS MODERATE IN SIZE. G-TUBE TO GRAVITY DRAIN, DENIES NAUSEA. BOWEL TONES HYPOACTIVE. ABD FIRM AND TENDER, PRN MAALOX ALSO GIVEN FOR HEARTBURN. SCD'S IN PLACE, CALL LIGHT AND CRM ANALYST BUTTON IN REACH.
--- NOTE | 2020-10-25 23:30 | NUR ---
NEW BAG IV FLUIDS HUNG AND INFUSING PER MD ORDERS, SITE WNL. G-TUBE AND URINAL EMPTIED, NO FURTHER NEEDS, CALL LIGHT IN REACH. pt VISITING WITH FRIEND.
--- NOTE | 2020-10-26 03:15 | NUR ---
in to assist pt with g tube, bag was popped off, this saddle lining stitcher had pt up to the toilet to clean up, new gown on, bed linens changed, pt back to bed, ice water filled, no further needs at this time
--- NOTE | 2020-10-26 03:20 | NUR ---
CALL LIGHT ANSWERED, G-TUBE BAG POPPED OFF. BAG PUT BACK IN PLACE. SHIRT FINISHER KRISTA IN ROOM TO HELP CLEAN pt, ASSESSMENT COMPLETE. NO NEW CHANGES OR CONCERNS. CPOX IN PLACE, O2 SAT 93% ON RA, RR 19. HR 67. ACCORDION TUNER BUTTON AND CALL LIGHT IN REACH.
--- NOTE | 2020-10-26 05:50 | NUR ---
VSS, CPOX IN PLACE. pt ON RA, O2 SAT LOW 90'S. I&O'S ALSO DONE. NO FURTHER NEEDS, CALL LIGHT AND BONUS CLERK BUTTON BOTH IN REACH.
--- NOTE | 2020-10-26 08:01 | NUR ---
RECEIVED REPORT FROM DAY SHIFT RN. PATIENT IS UP AMBULATING IN THE HALLWAY. PATIENT DENIES ANY NEEDS. REINFORCED G-TUBE.
--- NOTE | 2020-10-26 10:08 | NUR ---
PATIENT ASSESMENT COMPLETED. VITALS TAKEN AND RECORDED. INTAKE AND OUPUT RECORDED. G-TUBE EMPTIED. PATIENT DENIES ANY NAUSEA. PATIENT REPORTS 3/10 PAIN AND DENIES THE NEED FOR ADDITIONAL PAIN MEDICATION. PATIENTS MORNING MEDICATIONS GIVEN PER ORDER. PATIENT DENIES ANY FURTHER NEEDS. CALL LIGHT IN REACH. PATIENT REMAINS ON 2L VIA NC. CPOX IN USE.
--- NOTE | 2020-10-26 11:06 | NUR ---
CPOX IS ALARMING FOR SPD ALERT. PLACED NEW MONITOR LEAD ON PATIENTS FINGER. PATIENT DENIES ANY PAIN OR NASUEA. NEEDS NOTED. CALL LIGHT IN REACH.
--- NOTE | 2020-10-26 11:32 | NUR ---
MD INTO SEE PATIENT. PATIENTS G-TUBE EMPTIED. PATIENT PROVIDE WITH JELLO AND JUICE. NO FURTHER NEEDS NOTED. CALL LIGHT IN REACH.
--- NOTE | 2020-10-26 11:43 | OR ---
[facility] [address], [place] [address] Signed DATE OF OPERATION: 10/22/2020 SURGEON: Jake Perez MD PREOPERATIVE DIAGNOSES: 1. Persistent small bowel obstruction with segmental enteric thickening. 2. Obesity. 3. Large hernia at mid abdomen and umbilicus containing omentum. POSTOPERATIVE DIAGNOSES: 1. Umbilical hernia with incarcerated omentum without small hollow viscus incarceration. 2. Adhesions left lower abdomen causing incomplete obstruction. No evidence of bowel wall thickening. PROCEDURES: 1. Laparoscopy. 2. Conversion to open laparotomy with lysis of adhesions. 3. Intentional enterotomy with decompression of small bowel and closure of enterotomy. 4. Placement of decompressive LILLY gastrostomy tube. 5. Repair of fascial defect of umbilical hernia in continuity. ANESTHESIA: General endotracheal, Jake Auguste CRNA INDICATIONS: This 54-year-old white male was hospitalized for about a week at [facility] in [place], [place] with abdominal distention and findings consistent with incomplete bowel obstruction. He was discharged to home on a clear liquid diet and returned promptly thereafter where he was once again given nasogastric tube decompression. The patient left the hospital against medical advice, as he did not feel adequate progress was being made and presented to [facility] where I evaluated him on October 20, 2020, reviewing his abdominal CT scan images, which showed findings highly consistent with small bowel obstruction with segmental thickening of small bowel. Clinical impression is that of bowel obstruction related to the segmental bowel thickening, possibly related to Crohn disease though he has no such past medical history. He does smoke and is morbidly obese, particularly in the abdomen. I have recommended laparoscopy, possible laparoscopic remedy of the problem, possibly laparotomy and other indicated procedures as needed. The risk of bleeding, infection, need for bowel resection and other unforeseen complications were reviewed in detail. He understands and wished to Electronically Signed By: JAKE PEREZ MD 10/26/20 1143 PATIENT NAME: DONNY HILLIARD OPERATIVE REPORT DATE OF : 63 REPORT #: [id number] PHYSICIAN: JAKE PEREZ MD PCP: NO PRIMARY CARE PHYSICIAN REPORT IS CONFIDENTIAL AND NOT TO BE RELEASED WITHOUT AUTHORIZATION [facility] [address], [place] [address] Signed proceed. FINDINGS: There is no evidence of segmental bowel thickening. He did have adhesions in the left lower retroperitoneal area that appeared to be related to incomplete obstruction. These were lysed and the bowel freed up entirely. There was fair amount of inflammatory change of the small bowel and serositis proper. Decompression of the bowel was undertaken as well. There was surgical absence of the gallbladder. The appendix was not identified. A decompressive gastrostomy tube was placed on the high probability that he will have a prolonged ileus and in particular considering his rather atypical presentation and operative findings. DESCRIPTION OF PROCEDURE: The patient was brought to the operating room, given a general endotracheal anesthetic. Preoperative antibiotic cefoxitin had been given. Sequential compression device stockings were used. Heparin subcutaneously administered. After satisfactory general endotracheal anesthesia, the abdomen was clipped and prepared with a chlorhexidine solution after placement of a Narvaez catheter. The somewhat bulky hernia at the region of the umbilicus (incisional hernia) was partially reduced with relaxation of the abdomen. The abdomen is quite markedly distended and "beach ball" in appearance and tense. An infraumbilical incision was made and using an open Faviola cannula technique, the abdomen was entered, pneumoperitoneum achieved to a level of 14 mmHg with carbon dioxide gas. Intraabdominal inspection with the laparoscope confirmed no evidence of carcinomatosis. The liver appeared normal. There was surgical absence of the gallbladder. The bowel loops were quite markedly distended in the central portion, some were quite markedly inflamed. There was no sign of necrosis, no biliary staining or anything of that sort. It became clear that further manipulation to more fully identify the source of the obstruction would be unlikely with a laparoscopic approach. The incision was then extended allowing for laparotomy. Sequential extension of the incision was required over the course of exploration due to his profound abdominal wall obesity and intra-abdominal obesity including fatty mesentery and so forth. Ultimately, a relatively long laparotomy incision was required. This allowed for examination of the bowel from the ligament of Treitz to the terminal ileum and the area that appeared to be incompletely obstructed within the left lateral and posterior aspect where there were inflammatory adhesions of small bowel to the retroperitoneum. These were freed up with electrocautery. There was absolutely no area in the entire small bowel that was thickened or suggestive of neoplasm, Crohns disease or Electronically Signed By: JAKE PEREZ MD 10/26/20 1143 PATIENT NAME: DONNY HILLIARD OPERATIVE REPORT DATE OF : 63 REPORT #: [id number] PHYSICIAN: JAKE PEREZ MD PCP: NO PRIMARY CARE PHYSICIAN REPORT IS CONFIDENTIAL AND NOT TO BE RELEASED WITHOUT AUTHORIZATION [address] [address] Signed other problem. There was no evidence of creeping fat. Additional examination showed the sigmoid and left colon to be free of neoplasm. There was no sign of other abnormality. There were somewhat atypical adhesive changes at the terminal ileum to the retroperitoneum but these were freed up somewhat identifying the cecum. I did not identify the appendix. The small bowel was still markedly distended in the midportion despite no mechanical obstructive process. Decompression was deemed advisable. A pursestring suture of 3-0 silk suture was used in the mid small bowel allowing for decompression with a 14-gauge angiocatheter. Isolation of the abdominal contents with laparotomy pads allowed for no significant contamination. Sequential application of bowel clamps was used to isolate the bowel upon gentle milking proximally and distally to the central small bowel. Once decompression was complete, the pursestring suture was closed and the serosa reapproximated additionally with interrupted 3-0 silk suture. Copious irrigation of the abdomen was undertaken. The small bowel was run once again from the ligament of Treitz to the terminal ilium showing no sign of other obstructive process or other issue. Given the somewhat unusual nature of his profound distention and the lack of mechanical obstruction from neoplasm or thickening that I had anticipated, the possibility of a serositis causing ileus or other similar abnormality was considered. Mindful that his postoperative course will result in prolonged ileus, a decompressive gastrostomy was deemed advisable. An 18 Fr LILLY tube was placed in the distal 2/3rd of the stomach in the anterior aspect of the stomach. Two pursestring sutures of 2-0 silk suture were fixed to the serosa of the gastric serosa. A defect was created in the anterior aspect of the stomach to allow penetration of an 18-Nepalese LILLY tube through the left upper quadrant incision after testing the balloon and so forth. The tube was placed into the stomach and the pursestring suture secured and the serosa of the stomach secured to the anterior abdominal wall with interrupted 3-0 silk suture. The balloon once inflated was snugged up against the abdominal wall and marked to be at 4 cm. A landa 0 nylon suture was used to secure the collar to the tube and silk suture to secure the collar to the skin of the abdominal wall. Irrigation was undertaken once again. There was no sign of other abnormality. No enteric leakage or any other problem. The midline fascia was reapproximated with #1 PDS suture with episodic placement of independent #1 PDS internal retention sutures. The fascial defect at the incisional hernia at the umbilicus was closed in continuity. The patient was hemodynamically stable and good urine output was noted at that point. The 2nd needle count after the fascial closure was off by one needle and therefore per protocol, abdominal x-ray was performed showing no evidence of retained needle or other Electronically Signed By: JAKE PEREZ MD 10/26/20 1143 PATIENT NAME: DONNY HILLIARD OPERATIVE REPORT DATE OF : 63 REPORT #: [id number] PHYSICIAN: JAKE PEREZ MD PCP: NO PRIMARY CARE PHYSICIAN REPORT IS CONFIDENTIAL AND NOT TO BE RELEASED WITHOUT AUTHORIZATION [address] [address] Signed device. The skin was then closed with a clipping device and a silver sponge dressing is applied (Acticoat). G tube will be attached to gravity suction later. MD JENNIFER White/FREDERICK /[id number] cc: Dr. Jake Bello MD Copies: LAURA BELLO MD ~ Electronically Signed By: JAKE PEREZ MD 10/26/20 1143 PATIENT NAME: DONNY HILLIARD ALPHONSO OPERATIVE REPORT DATE OF : 63 REPORT #: [id number] PHYSICIAN: JAKE PEREZ MD PCP: NO PRIMARY CARE PHYSICIAN REPORT IS CONFIDENTIAL AND NOT TO BE RELEASED WITHOUT AUTHORIZATION
--- NOTE | 2020-10-26 11:45 | NUR ---
PATIENT OFF FLOOR TO X-RAY
--- NOTE | 2020-10-26 12:18 | NUR ---
PATIENT RETURNED FROM X-RAY. IV INFUSING PER ORDER. CPOX CONNECT SCDS IN USE. PATIENT DENIES ANY NEEDS. CALL LIGHT IN REACH.
--- NOTE | 2020-10-26 13:42 | NUR ---
PATIENT IN BED RESTING WITH EYES CLOSED. VITALS AND I&O'S CHARTED. CALL LIGHT IN REACH. NO FURTHER NEEDS AT THIS TIME.
--- NOTE | 2020-10-26 14:28 | NUR ---
PATIENTS SCHEDULED MEDICATIONS GIVEN PER ORDER. PATIENT HAD LOOSE, LIQUIDY, BROWN BM. PATIENT DENIES ANY PAIN OR NAUSEA. PATIENT IS BACK IN BED RESTING. CPOX IN USE. PATIENT IS ON 1L VIA NC. NO FURTHER NEEDS NOTED. CALL LIGHT IN REACH.
--- NOTE | 2020-10-26 16:09 | NUR ---
PATIENT IS RESTING IN BED WITH EYES CLOSED. PATIENT IS ON RA. CPOX READINGS ARE WNL. CALL LIGHT IN REACH.
--- NOTE | 2020-10-26 18:39 | NUR ---
PATIENT IS RESTING IN BED. VITALS TAKEN AND RECORDED. INTAKE AND OUPUT RECORDED. PATIENT RATES PAIN AT A 3/10. PATIENT DENIES THE NEED FOR PAIN MEDICATION AND HAS NOT USED HIS AUTOPSY ASSISTANT THIS SHIFT. PATIENT DENIES ANY NAUSAE. PATIENT HAS HAD MULTIPLE LOOSE BMS. PRN HEARTBURN MEDICATION GIVEN PER ORDER. PATIENT DENIES ANY FURTHER NEEDS CALL LIGHT IN REACH.
--- NOTE | 2020-10-26 19:05 | NUR ---
SHIFT REPORT RECEIVED FROM REHANIDLESLIE RAMIREZ AT BEDSIDE, pt AWAKE AND RESTING IN BED, ON RA. CPOX IN PLACE. TRANSPORTATION AID BUTTON AND CALL LIGHT IN REACH. MODERATE OLD SEROSANGUINEOUS SHADOWING NOTED TO ABD MIDLINE, G-TUBE TO GRAVITY DRAIN. pt HAD MULTIPLE BM'S SINCE START OF REGLAN. DENIES NAUSEA, NO NEEDS AT THIS TIME. CALL LIGHT IN REACH.
--- NOTE | 2020-10-26 20:15 | NUR ---
ASSESSMENT COMPLETE, SCHEDULED MEDS GIVEN (SEE EMAR). VSS, pt ON RA. REPORTS 4/10 ABD DISCOMFORT. pt HAD MULTIPLE BM'S ON DAYSHIFT AFTER START OF REGLAN, DR PEREZ AT RN STATION. PER TIFFANIE BACH TO SKIP EVENING REGLAN DOSE AND ALLOW pt TO REST. PER DR PEREZ, CLAMP G-TUBE AND FLUSH WITH TAP WATER PRN TO PREVENT CLOGGING. PER TIFFANIE LAI TO CONNECT G-TUBE TO GRAVITY DRAIN IF NAUSEA/EMESIS OCCURS. G-TUBE FLUSHED WITH 30MLS TAP WATER, TOLERATED WELL. TRACKMAN DOSE SETTINGS VERIFIED WITH SECOND RN CINTHYA. NO FURTHER NEEDS, SCD'S IN PLACE. CALL LIGHT AND TRACKMAN BUTTON IN REACH.
--- NOTE | 2020-10-26 20:56 | NUR ---
CALL LIGHT ANSWERED. SBA TO RESTROOM FOR BM. pt VERBALIZES UNDERSTANDING TO USE CALL LIGHT WHEN FINISHED.
--- NOTE | 2020-10-26 21:15 | NUR ---
CALL LIGHT ANSWERED, pt SBA BACK TO BED. NO FURTHER NEEDS, CALL LIGHT AND REGIONAL TRUCK DRIVER BUTTON BOTH IN REACH.
--- NOTE | 2020-10-27 00:10 | NUR ---
O2 SAT UPPER 80'S ON RA, pt PLACED ON 1LNC, NOW SUSTAINING IN LOW 90'S. PATRIOT MISSILE AIR DEFENSE ARTILLERY BUTTON AND CALL LIGHT IN REACH.
--- NOTE | 2020-10-27 02:20 | NUR ---
SCHEDULED REGLAN GIVEN, SEE EMAR. IV SITE WNL AND FLUSHES EASILY. CPOX IN PLACE, ONLY 0.5MG MORPHINE FROM HOPPER FEEDER GIVEN THUS FAR IN SHIFT, WILL CONTINUE TO MONITOR. BOWEL TONES ACTIVE, pt DENIES NAUSEA AND CONTINUES TO TOLERATE CLAMPING OF G-TUBE. NO FURTHER NEEDS, CALL LIGHT IN REACH.
--- NOTE | 2020-10-27 04:41 | NUR ---
pt UP SBA TO VOID, VOID X1 UNMEASURED NOTED. pt BACK TO BED, STEADY ON FEET. FURNITURE LUMBER PRODUCTION WORKER BUTTON AND CALL LIGHT BOTH IN REACH. CPOX ALSO IN PLACE, SPO2 WNL ON RA, HR WNL.
--- NOTE | 2020-10-27 06:42 | NUR ---
APPLE JUICE PROVIDED PER PATIENT'S REQUEST.
--- NOTE | 2020-10-27 07:34 | NUR ---
THIS RN RECEIVED REPORT FROM LESLEE SORIANO. PT APPEARS TO BE RESTING COMFORTABLY WITH RESPIRATIONS NOTED AND PULSE OX IN PLACE DUE TO MAKEUP ARTISTRY INSTRUCTOR IN USE.
--- NOTE | 2020-10-27 09:22 | NUR ---
PT AMBULATED TO BATHROOM INDEPENDENTLY. SET UP CHAIR FOR BREAKFAST. PT REPORTS PAIN IS MINIMAL AND HE HAS NOT HAD ANY NAUSEA. G-TUBE IS CLAMPED. ABDOMEN IS STILL DITENDED AND FIRM. PT REPORTS HE DOESNT LIKE DRINKING FLUIDS BECAUSE IT MAKES HIM HAVE A BM. CPOX IN PLACE. WATER REFRESHED. CALL LIGHT IN REACH.
--- NOTE | 2020-10-27 09:25 | NUR ---
THIS RN IN PTS ROOM TO GIVE PT HIS MORNING MEDS. PT STATES THAT HE HAD MULTIPLE BOWEL MOVEMENTS OVER NIGHT AND WOULD PREFER NOT TO TAKE THE REGLAN THIS AM, THIS RN EDUCATED PT TO WHY HE TAKES IT, PT STATES UNDERSTANDING. PT REPORTS THAT PAIN IS TOLERABLE AT 4/10 PAIN THIS AM, PT UP TO CHAIR AND STATES THAT HE IS FEELING PRETTY COMFORTALBE THERE.
--- NOTE | 2020-10-27 10:37 | NUR ---
PATIENT IN CHAIR RESTING WITH EYES CLOSED. VITALS CHARTED BY RN EARLIER. CALL LIGHT IN REACH. NO FURTHER NEEDS AT THIS TIME.
--- NOTE | 2020-10-27 11:15 | NUR ---
THIS RN IN PTS ROOM TO CHECK ON PT. PT APPEARS TO BE RESTING COMFORTABLY UP IN THE CHAIR WITH RESPIRATIONS NOTED AND CPOX IN PLACE
--- NOTE | 2020-10-27 12:45 | NUR ---
THIS RN IN PTS ROOM TO PASS MED. PT EMILYY WITH TAKING MED AFTER GETTING EDUCATION AND DISUCSSING THE NEED FOR IT WITH MD. PT BACK TO BED AT THIS TIME AND IS HAVING AN ADEQUATE APPETITE.
--- NOTE | 2020-10-27 15:50 | NUR ---
THIS RN IN PTS ROOM TO DENTAL SALES REPRESENTATIVE PTS FLUIDS. PT STATES THAT HE IS DOING WELL AND IS HAVING MULTIPLE BOWEL MOVEMENTS, PT DOES STATE THAT HIS PAIN IS TOELRABLE AT 3/10. THIS RN HAS NOT HAD TO CHANGE A SOLO TRUCK DRIVER MORPHINE CANISTER.
--- NOTE | 2020-10-27 17:30 | NUR ---
THIS RN CALLED INTO PTS ROOM. PT STATES THAT HE VOMITIED INTO THE TOILET. PT STATES THAT HE THINKS IT WAS THE TOMATO SOUP. PT REPORTS THE NAUSEA IS FEELING A BIT BETTER AFTER VOMITING. PT STATES THAT HE ALSO HAD A BM. PT STATES THAT HE WANTS TO TAKE A SHOWER, THIS RN TO LOOK TO SEE IF PT HAS AN ORDER- PT DOES NOT. THIS RN TO CALL .
--- NOTE | 2020-10-27 17:45 | NUR ---
THIS RN CALLED MD WITH AN UPDATE ON PT. GAVE THIS RN ORDERS TO REMOVE OLD DRESSING. ALLOW PT TO SHOWER. AND TO PUT IN FOR PT TO HAVE A KUB IN THE AM. ALL ORDERS PUT IN FOR MD UNDER PHONE CALL PARAMETERS.
--- NOTE | 2020-10-27 17:47 | NUR ---
THIS RN IN PTS ROOM TO CHECK ON PT AFTER TALKING WITH FMD. PT BACK TO BED. PT STATES THAT HE ISN'T INTERESTED IN A SHOWER AT THIS TIME. PT STATES THAT HE IS NO LONGER NAUSEOUS AND IS JUST GOING TO CHILL IN BED FOR A BIT
--- NOTE | 2020-10-27 17:50 | NUR ---
THIS RN REMOVED PTS ABD DRESSING AND DRESSING AROUND G-TUBE. PT TOERLATED WELL AND WILL CALL WHEN READY TO TAKE A SHOWER. PT HAS NO OTHER COMPLAINTS AT THIS ITME
--- NOTE | 2020-10-27 18:32 | NUR ---
PATIENT RESTING IN BED. VITALS AND I&O'S CHARTED. PATIENT HAD X1 EMESIS EARLIER, RN AWARE. CALL LIGHT IN REACH AND NO OTHER NEEDS AT THIS TIME.
--- NOTE | 2020-10-27 19:44 | NUR ---
THIS LMFT AND LMFTLeanne SALAZAR WENT IN TO THE ROOM AND ASKED PATIENT REGARDING TAKING SHOWER TONIGHT. PATIENT STATED "NO".
--- NOTE | 2020-10-27 19:45 | NUR ---
PATIENT CALLED TO USE THE BATHROOM. SBA. PATIENT VOIDED UNMEASURED AND HAD LOOSE BOWEL MOVEMENT. PATIENT IS BACK IN BED. PATIENT STATED HIS WILL BE STAYING TONIGHT AND NEEDED BEDDINGS. PROVIDED. NO OTHER NEEDS AT THIS TIME.
--- NOTE | 2020-10-27 19:46 | NUR ---
Approached patient inquiring evening shower, patient refused. Gave patient bedding for overnight stay. Patient had BM, documented along with intake. No other immediate patient needs at this time.
--- NOTE | 2020-10-27 19:47 | NUR ---
@[id number] RECEIVED REPORT FROM SATHYA RN DAY RN. PT IN BED, EYES CLOSED. NO NEEDS AT THIS TIME.
--- NOTE | 2020-10-27 20:26 | NUR ---
PATIENT WENT TO THE BATHROOM INDEPENDENTLY. PATIENT IS BACK IN BED. PATIENT VOIDED AND HAD BOWEL MOVEMENT. ICE WATER REFILLED.
--- NOTE | 2020-10-27 20:45 | NUR ---
Patient requested lower temp. in room. Temperature was set to 70 degrees, patient was notified. No other immediate needs, call light in reach.
--- NOTE | 2020-10-27 21:45 | NUR ---
ASSESSMENT COMPLETE. FLUSHED GTUBE WITH 30 ML, FLUSHES WELL. MIDLINE THERESA C/D/I. GTUBE WITH DRAIN GAUZE, NO DRAINAGE, CLAMPED. PT STATES THAT HE PASSED A LARGE AMOUNT OF GAS, AND SMALL LOOSE STOOL. HE AMBULATED COUPLE LAPS PRIOR TO THIS HOUR. HE STATES AT THIS TIME, HIS BELLY FEELS MUCH BETTER, DENIES NAUSEA. ENCOURAGED PT TO AVOID ACIDIC FOODS, CHOSE BLANDER FOODS, AND SLATE CUTTER OPERATOR VS TOMATO SOUP LIKE FOODS. HIS COMMENT WAS THE KITCHEN LADY "SAID I COULD EAT THAT". EDUCATED ON FOOD CHOICES FOR FULL LIQUID. MORPHINE ASSISTANT CHIEF ENGINEER UNUSED SINCE CHANGE OF SHIFT, PT STATES HE ISN'T PAINFUL ENOUGH FOR MORPHINE. PT AT BEDSIDE. IV INFUSING PER MARS. FRESH ICE WATER GIVEN. NO OTHER NEEDS AT THIS TIME.
--- NOTE | 2020-10-27 23:17 | NUR ---
DR PEREZ CALLED INQUIRING OF PT CONDITION. UPDATED.
--- NOTE | 2020-10-27 23:45 | NUR ---
SPD ALERT SOUNDING. POOR WAVEFORM. O2 SATS 94, HR 80. PT WITH EYES CLOSED, RESP EVEN AND UNLABORED. PT AT BEDSIDE.
--- NOTE | 2020-10-28 00:45 | NUR ---
PT WITH EYES CLOSED, RESP EVEN AND UNLABORED. SATS READING 94, HR 75. IV INFUSING PER ORDER. ASLEEP ON COUCH.
--- NOTE | 2020-10-28 05:40 | NUR ---
IV PUMP ALARMING. NEW BAG LR INFUSING WNL. pt SLEEPING, SPO2 92% ON ROOM AIR ON CPOX.
--- NOTE | 2020-10-28 07:37 | NUR ---
this rn received report from nabeel cortes. pt appears to be resting at this time with respirations noted. pts at bedside and motions to this rn that pt was resting.
--- NOTE | 2020-10-28 08:30 | NUR ---
[facility] CALLED TO SAY THAT THEY WILL BE DOWN SHORTLY. PT SALINE LOCKED FOR EASE OF IMMAGINING STUDY
--- NOTE | 2020-10-28 09:30 | NUR ---
PT OFF OF UNIT FOR IMMAGINING STUDY
--- NOTE | 2020-10-28 10:00 | NUR ---
PT BACK TO ROOM AFTER HAVING KUB BEING DONE. PT STATES THAT HE IS DOING WELL. PT REPORTS THAT HIS PAIN IS 2/10. PT HAS NOT USED THE AUTO SERVICE DISPATCHER PUMP FOR THIS RN THIS AM. PT REPORTS THAT PAIN IS CONTROLLED AND IS HAVING BM'S FREQUENTLY. PTS ONLY CONCERN IS WHEN HE GETS TO GO HOME. PTS AT BEDSIDE- ALL QUESTIONS ANSWERED TO THE BEST OF THIS RNS ABILITY.
--- NOTE | 2020-10-28 10:30 | NUR ---
BREAKFAST TRAY LEFT IN PATIENT ROOM PER PATIENT REQUEST. STILL WORKING ON MEAL.
--- NOTE | 2020-10-28 10:45 | NUR ---
Spoke with Ky. STates he is doing ok. Not ready for dc. Denies needs. Plans on dc to home with when ready.
--- NOTE | 2020-10-28 12:57 | NUR ---
pt up walking halls with at this time.
--- NOTE | 2020-10-28 13:57 | NUR ---
PATIENT RESTING IN BED, VITALS AND I&O'S CHARTED. CALL LIGHT IN REACH, NO FURTHER NEEDS AT THIS TIME.
--- NOTE | 2020-10-28 15:40 | NUR ---
JAMES RN IN PTS ROOM WIHT THIS RN TO WASTE PTS RACE CAR DRIVER MORPHINE. AMOUNT WASETED IN MED ROOM WAS 9.3MG/ML. THIS RN ALSO TO DC PTS IV FLUIDS AT THIS TIME WELL.
--- NOTE | 2020-10-28 16:20 | NUR ---
THIS RN IN PTS ROOM TO FLUSH PTS G-TUBE. THIS RN INFUSED 35ML INTO THE G-TUBE, THIS RN ABLE TO DRAW BACK 5ML RESIDUAL, THIS WAS INFUSED BACK INTO PTS GTUBE. PT TOLERATED WELL, NO NAUSEA NOTED. PT STATES THAT ALL HE FEELS IS THE COLD FLUID (LUKE WARM) GOING IN
--- NOTE | 2020-10-28 19:15 | NUR ---
RECEIVED REPORT FROM ROSALIO RN, PT IS WALKING IN [place] AT THIS TIME.
--- NOTE | 2020-10-28 21:20 | NUR ---
IN ROOM TO ASSESS PT AND ADMINISTER MEDICATIONS. PT COUGHED SOME AND REPORTS THIS A "SMOKERS COUGH". PT REPORTS PAIN 3/10 AND DENIES NEED FOR PAIN MEDICATION. MIDLINE INCISION IS CLOSED WITH THERESA AND INTACT WITH OLD DRY DRAINAGE NOTED. FLUSHED THE G TUBE WITH 50MLS WARM TAP WATER AND PT DENIES NAUSEA. PT AMBULATED THIS EVENING. BOWEL TONES ARE HYPOACTIVE. PT DENIES NEEDS AT THIS TIME. CALL LIGHT IS CLOSE.
--- NOTE | 2020-10-28 23:27 | NUR ---
PT IS RESTING WITH EYES CLOSED RR IS EVEN AND NONLABORED. CALL LIGHT IS CLOSE.
--- NOTE | 2020-10-29 01:37 | NUR ---
PT IS RESTING WITH EYES CLOSED, RR IS EVEN AND NONLABORED. CALL LIGHT IS CLOSE.
--- NOTE | 2020-10-29 03:24 | NUR ---
PT IS RESTING WITH EYES CLOSED, RR IS EVEN AND NONLABORED. CALL LIGHT IS CLOSE.
--- NOTE | 2020-10-29 06:21 | NUR ---
Patient Is and Os charted, vitals charted. Patient is lying in bed asleep. Call light is within reach, garbage emptied and room is tidied.
--- NOTE | 2020-10-29 06:30 | NUR ---
IN ROOM TO FLUSH G TUBE, PT DENIES PAIN AND NAUSEA. BOWEL TONES ARE MORE ACTIVE THIS AM. PT STATES HE IS PASSING A LITTLE GAS. PT DENIES FURTHER NEEDS AT THIS TIME. CALL LIGHT IS CLOSE.
--- NOTE | 2020-10-29 07:31 | NUR ---
this rn received report from keke cortes. pt appears to be resting at this time with notable respirations wnl
--- NOTE | 2020-10-29 07:57 | NUR ---
PATIENT RESTING IN BED WITH EYES CLOSED. BOARD UPDATED. CALL LIGHT IN REACH AND NO FURTHER NEEDS AT THIS TIME.
--- NOTE | 2020-10-29 08:18 | NUR ---
PATIENT SAT UP IN BED FOR BREAKFAST, PREFERED THE LIGHTS REMAIN OFF. REQUESTED APPLE JUICE WITH HIS MEAL. CALL LIGHT IS IN REACH AND NO FURTHER NEEDS AT THIS TIME.
--- NOTE | 2020-10-29 08:30 | NUR ---
this rn in pts room to pass morning meds. pt sitting up in bed and eating breakfast. pt reports having an improved appetite this am, reports no nausea or pain and abdominal distention appears to be much improved this am. g-tube still in place and minline inscion looks wnl for post opp insiocion site.
--- NOTE | 2020-10-29 10:04 | NUR ---
PT UP WALKING THE HALLS AT THIS TIME. PT APPEARS STEADY ON HIS FEET AND IS TOLERATING WELL
--- NOTE | 2020-10-29 12:15 | NUR ---
pt up walking halls at this time. md to discharge pt today
[2020-10-29] MEDS ORDERED: FAMOTIDINE20 MG PO (12:29)
[2020-10-29] MEDS ORDERED: METOCLOPRAMIDE10 MG PO (12:30)
--- NOTE | 2020-10-29 12:53 | NUR ---
Pt walking in [place]. No change in plan for dc.
--- NOTE | 2020-10-29 13:36 | NUR ---
PT REQUESTED I COME BACK AGAIN, HE WAS RESTING. WILL FOLLOW NEEDED
--- NOTE | 2020-10-31 09:44 | DS ---
[facility] [address], [place] [address] Signed ADMISSION DATE: 10/20/2020 DISCHARGE DATE: 10/29/2020 REASON FOR ADMISSION: This 54-year-old white male was hospitalized in [place], [place], on October 14, having presented to the hospital at [facility] with abdominal distention, nausea, and vomiting. A CT scan showed findings consistent with bowel obstruction. Nasogastric tube had been maintained for about a week. He was discharged on October 18, having tolerated a clear liquid diet, but had prompt return of nausea and vomiting on the , and presented to [facility] once again, where a CT scan was once again performed showing findings of abdominal loop distention as well as nonobstructing incisional hernia at the umbilicus with herniated properitoneal fat. There appeared to be left-sided segment of small bowel, that had a relatively long narrowed area of stricture. The patient was concerned that "nothing was being done" and on that basis left the hospital against medical advice. He promptly presented to [facility] and was evaluated once again. His evaluation did show findings based on his CT scan performed in [place] of probable small-bowel obstruction and he was admitted on that basis. PERTINENT PHYSICAL EXAMINATION: GENERAL: Showed a white man, who did not look systemically toxic. White count was elevated at 15,400. Creatinine 1.35, potassium 3.2, blood sugar 136. HEENT: Trachea was midline. Mucous membranes were dry. CHEST: Clear. HEART: Regular without murmur. ABDOMEN: Markedly distended, highly consistent clinically with bowel obstruction. He had mild tenderness in the gyb-[id number]-[id number] abdomen on the right side. He had no clubbing, cyanosis, or edema. HOSPITAL COURSE: He was given a nasogastric tube and additional fluid resuscitation. Followup x-ray showed findings highly consistent with small bowel obstruction. Review of his CT scan images and so forth from [place] showed two areas of the bowel that appeared to have stricture and likely accounting for his symptoms. Under the strong concern this may represent inflammatory bowel disease. Despite his relatively advanced age, he was recommended to undergo laparoscopy and possible laparotomy to remedy the obstruction, which had been ongoing. On October 22, 2020, he underwent laparoscopy with conversion to open laparotomy. Lysis of adhesions on the left side of the abdomen, which appeared to emanate from the retroperitoneum and were encumbered in the small bowel was undertaken. To my surprise, Electronically Signed By: JAKE PEREZ MD 10/31/20 0944 PATIENT NAME: DONNY HILLIARD DISCHARGE SUMMARY DATE OF : 63 REPORT #: [id number] PHYSICIAN: JAKE PEREZ MD PCP: NO PRIMARY CARE PHYSICIAN REPORT IS CONFIDENTIAL AND NOT TO BE RELEASED WITHOUT AUTHORIZATION [address] [address] Signed he had no segments of small bowel that had involvement of thickening. No evidence of creeping fat or other stigmata of inflammatory bowel disease. He had no evidence of internal hernia. He did have markedly distended bowel loops and distal decompression in the region of the adhesions, that was noted. Operative intentional enterotomy with decompression of small bowel was performed as well. A decompressive LILLY 18-Mongolian gastrostomy tube was placed, mindful that he would likely have a prolonged ileus following operation and extensive manipulation of bowel. Postoperatively, he was maintained with a multimodal pain approach, including IV Tylenol, IV Toradol, ultimately requiring morphine HADOOP JAVA DEVELOPER. Venting of his gastrostomy tube allowed avoidance of a nasogastric tube. He had progressive recovery, but persistence of clinical ileus. Electrolytes were made normal with supplementation as needed. He was maintained with his Narvaez catheter and decompressive gastrostomy. A trial of intravenous Reglan was initiated, which had profound affect of copious bowel movements and egress of flatulence. Indeed, the effect was so pronounced that Reglan was withdrawn. He had been given a clear liquid diet with open venting of the gastrostomy for comfort, but at that point, the gastrostomy tube was occluded to assess for his tolerance of oral intake. He indeed did have tolerance of clear liquids, was advanced to full liquids, and re-initiated on a regimen of Reglan b.i.d. Transition to a low-fiber solid diet with oral Reglan was initiated, which he tolerated well. By day of discharge, he is ambulating well, not requiring opiate pain medication. Incision is healing well. Junito remain in place. The gastrostomy tube is occluded and not being required for venting. He still has abdominal protuberance, but much of it I suspect is related to visceral fat and a typical abdominal appearance of metabolic syndrome. Clinically, he is well at the time of discharge. In followup he will maintain a G-tube. Until that point, it will be safe to explant. I will see him back in the office in 3 to 4 weeks for that purpose and to remove his incisional clips. He is advised to lift no more than 20 pounds for the next 3 weeks. 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 He understands that. Additionally, we will have him flush his G-tube twice a day, on the unlikely chance that gastrostomy tube may be needed for venting of his stomach between now and the time of its removal. We will maintain the Reglan b.i.d. for the time being as well. He is permitted and encouraged to shower on a daily basis and to walk routinely. DISCHARGE MEDICATIONS: 1. Pepcid 20 mg p.o. b.i.d., #60, refill two. 2. Reglan 10 mg p.o. b.i.d., #60, refill one. 3. He will utilize his usual medications, including lisinopril 20 mg p.o. daily, Norvas Electronically Signed By: JAKE PEREZ MD 10/31/20 0944 PATIENT NAME: DONNY HILLIARD DISCHARGE SUMMARY DATE OF : 63 REPORT #: [id number] PHYSICIAN: JAKE PEREZ MD PCP: NO PRIMARY CARE PHYSICIAN REPORT IS CONFIDENTIAL AND NOT TO BE RELEASED WITHOUT AUTHORIZATION [facility] [address], [place] [address] Signed 5 mg p.o. daily, and hydrochlorothiazide 25 mg tablets one tablet p.o. daily. DISCHARGE DIAGNOSES: 1. Persistent small bowel obstruction, status post laparoscopy with conversion to open laparotomy with lysis of limited adhesions, October 22, 2020. 2. Hypertension. 3. Abdominal obesity. 4. Probable reflux disease. MD JENNIFER White/MODL /[id number] cc: [facility] [place], [place] Laura Bello MD Copies: LAURA BELLO MD ~ Electronically Signed By: JAKE PEREZ MD 10/31/20 0944 PATIENT NAME: DONNY HILLIARD ALPHONSO DISCHARGE SUMMARY DATE OF : 63 REPORT #: [id number] PHYSICIAN: JAKE PEREZ MD PCP: NO PRIMARY CARE PHYSICIAN REPORT IS CONFIDENTIAL AND NOT TO BE RELEASED WITHOUT AUTHORIZATION
== END 2020-10-29 13:47 | disposition home or self-care (01) | DRG 327 ==
LOC: ED 20:13 → MS 23:17
PROVIDERS: ADMIT Surgery; ATTEND Surgery
PROC: 0WQF0ZZ Repair Abdominal Wall, Open Approach (ICD-10-PCS; 2020-10-22)
PROC: 0DJD4ZZ Inspection of Lower Intestinal Tract, Percutaneous Endoscopic Approach (ICD-10-PCS; 2020-10-22)
PROC: 0DN80ZZ Release Small Intestine, Open Approach (ICD-10-PCS; principal; 2020-10-22 10:00)
PROC: 0D9600Z Drainage of Stomach with Drainage Device, Open Approach (ICD-10-PCS; 2020-10-22 10:00)
DX: K42.0 Umbilical hernia with obstruction, without gangrene (principal); K56.50 Intestinal adhesions [bands], unspecified as to partial versus complete obstruction; K56.7 Ileus, unspecified; Z20.822 Contact with and (suspected) exposure to COVID-19; I10 Essential (primary) hypertension; F17.200 Nicotine dependence, unspecified, uncomplicated; E66.9 Obesity, unspecified; K21.9 Gastro-esophageal reflux disease without esophagitis; Z79.899 Other long term (current) drug therapy; Z53.31 Laparoscopic surgical procedure converted to open procedure; Z68.31 Body mass index [BMI] 31.0-31.9, adult
CPT/HCPCS: 00840; 36415; 74018; 80048; 80053; 81001; 83605; 83690; 83735; 85025; 93005; 93010; 94762; 96374; 96375; 99285-25; J0131; J0330; J0461; J0694; J1100; J1170; J1644; J1885; J2250; J2270; J2370; J2405; J2704; J2765; J3010; J7030; J7121; U0003